=== PATIENT | male | born 1985 | race Caucasian/White ===

== ENCOUNTER 2017-10-26 09:38 | Outpatient (CLI) | payer OTHER ==
[2017-10-26 09:37] VITALS: BP 119/71
== END 2017-10-26 10:30 | disposition home or self-care (01) ==
LOC: ORTHO 09:38
PROVIDERS: ATTEND Nurse Practitioner Family
DX: S42.291D Other displaced fracture of upper end of right humerus, subsequent encounter for fracture with routine healing (principal); S43.004D Unspecified dislocation of right shoulder joint, subsequent encounter; Z60.2 Problems related to living alone; X58.XXXD Exposure to other specified factors, subsequent encounter
CPT/HCPCS: 73030

== ENCOUNTER → 2017-12-03 | Outpatient (CLI) | payer OTHER ==
[2017-12-03 14:49] VITALS: BP 114/67
== END ==
LOC: ORTHO 14:41
PROVIDERS: ATTEND Nurse Practitioner Family
DX: S42.291D Other displaced fracture of upper end of right humerus, subsequent encounter for fracture with routine healing (principal); S43.004D Unspecified dislocation of right shoulder joint, subsequent encounter; Z60.2 Problems related to living alone; X58.XXXD Exposure to other specified factors, subsequent encounter
CPT/HCPCS: 73030